=== PATIENT | female | born 1970 | race Caucasian/White ===

== ENCOUNTER 2017-11-26 15:32 | Emergency (ER) | payer SELFPAY ==
[~2017-11-26] VITALS: Ht 154.9 cm; Wt 73.5 kg
[2017-11-26 15:35] VITALS: BP 169/82
--- NOTE | 2017-11-26 15:49 | NUR ---
PT AMBULATES TO BED 6 Addendum: 11/26/17 at 1549 by [email or web address] REPORT GIVEN TO martha CHANDLER
--- NOTE | 2017-11-26 15:54 | NUR ---
47Y/F BIB DTR C/O AB PAIN. PT STATES SHE HAS N/V/D & LOWER ABDOMINAL PAIN RADIATING TO LOWER BACK & HEADACHE X 1 WEEK. SEEN BY PCP 11/23/17; SAME S/S; GOT CIPRO 500MG. PT SKIN IS PINK/WARM/DRY; AAOX4 WITH EVEN AND STEADY GAIT; LUNGS CLEAR BL; HR EVEN AND REGULAR; PT DENIES ANY FEVER, CP, SOB, OR COUGH AT THIS TIME; VSS; PATIENT POSITIONED FOR COMFORT; HOB ELEVATED; BEDRAILS UP X1; BED DOWN. ER MD MADE AWARE OF PT STATUS. MED HX: HTN, DM,HIGH CHOLESTEROL MED: INSULIN, ATORVASTATIN, ENALAPRIL
--- NOTE | 2017-11-26 15:55 | NUR ---
DR MORALES EVALUATING AT BEDSIDE
[2017-11-26] MEDS ORDERED: ONDANSETRON 4 MG ODT PO ONE (16:00)
[2017-11-26] MEDS ORDERED: KETOROLAC 60 MG/2 ML VIAL IM ONE (16:00)
[2017-11-26] MEDS ORDERED: PHENAZOPYRIDINE 100 MG TAB PO ONE (16:00)
[2017-11-26] MEDS ORDERED: cefTRIAXone 1,000 MG in LIDOCAINE MPF 1% - 5 mL VIAL 2.1 ML IM ONE (16:00)
[2017-11-26 16:34] VITALS: BP 160/80
--- NOTE | 2017-11-26 16:34 | NUR ---
Patient discharged with v/s stable. Written and verbal after care instructions given and explained. Patient alert, oriented and verbalized understanding of instructions. Ambulatory with steady gait. All questions addressed prior to discharge. ID band removed. Patient advised to follow up with PMD. Rx of keflex, zofran, motrin, pyridium given. Patient educated on indication of medication including possible reaction and side effects. Opportunity to ask questions provided and answered.
== END 2017-11-26 16:34 | disposition home or self-care (01) ==
LOC: MED 15:32
DX: N39.0 Urinary tract infection, site not specified (principal); R11.0 Nausea
CPT/HCPCS: 81002; 81025; 96372; 99284; J0696; J1885; J2001; S0119